=== PATIENT | male | born 1995 | race Caucasian/White ===

== ENCOUNTER 2022-09-09 16:29 | Emergency (ER) | payer OTHER, SELFPAY ==
[2022-09-09 16:51] VITALS: BP 134/87; PULSE 87; RESP 16; TEMP 36.6; O2SAT 95; BMI 25.1
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
== END 2022-09-09 20:53 | disposition home or self-care (01) ==
PROVIDERS: Emergency Provider Family Medicine
DX: S16.1XXA Strain of muscle, fascia and tendon at neck level, initial encounter (principal); S00.12XA Contusion of left eyelid and periocular area, initial encounter; W21.09XA Struck by other hit or thrown ball, initial encounter; Y08.89XA Assault by other specified means, initial encounter
CPT/HCPCS: 99283